=== PATIENT | male | born 1955 | race Caucasian/White ===

== ENCOUNTER 2016-07-23 09:04 | Day surgery (SDC) | payer OTHER ==
[~2016-07-23] VITALS: Ht 185.4 cm; Wt 96.2 kg
[~2016-07-23 09:04] MED LIST: ACET325T51 PO; DILT120C86 PO; LEVO100C2 PO; LIP40 PO; LISI-567 PO; RIVA20TA PO; Sodium Chloride LOK Flush 10 mL Syringe IV PRN; fentaNYL-PF 50 mCg/mL 2 mL Inj IVPUSH PRN
[2016-07-23] MEDS ORDERED: fentaNYL-PF 50 mCg/mL 2 mL Inj IVPUSH ONE (09:05)
[2016-07-23 09:54] VITALS: BP 175/86; PULSE 91; RESP 16; O2SAT 100
[2016-07-23] MEDS ORDERED: 0.9% Sodium Chloride 1,000 ML IV ONE (10:06)
[2016-07-23 11:03] VITALS: BP 120/69; PULSE 67; RESP 16; O2SAT 97
[2016-07-23 11:13] VITALS: BP 103/72; PULSE 73; RESP 16; O2SAT 99
[2016-07-23 11:17] VITALS: BP 108/69; PULSE 77; RESP 16; O2SAT 99
--- NOTE | 2016-07-23 11:29 | ENDO ---
[address] [address] ENDOSCOPY PROCEDURE PATIENT: NYASIA PFEIFFER : 1955 MR#: [id number] ADMIT: 07/23/2016 JOB ID: [id number] DATE OF SERVICE: 07/23/2016 TYPE OF OPERATION: Colonoscopy. PREOPERATIVE DIAGNOSIS(ES): Colorectal cancer screening. POSTOPERATIVE DIAGNOSIS(ES): 1. Mild sigmoid diverticulosis. 2. Small internal hemorrhoids. ANESTHESIA: Fentanyl 125 mcg, Versed 5 mg IV administered. COMPLICATIONS: None. BLOOD LOSS: Minimal. DESCRIPTION OF PROCEDURE: After risks and benefits were explained to the patient, informed consent was obtained. After anesthesia administered, a colonoscope was then inserted from the rectum to the cecum. Mucosa carefully examined. Prep of the patient was excellent. After the procedure was done, the scope withdrawn and procedure terminated. FINDINGS: Upon inspection of the anus, no masses, hemorrhoids, ulcers, or fissures that were seen. Throughout the entire examination, there is mild sigmoid diverticulosis. No polyps or mass was seen. Retroflexion showed small internal hemorrhoids. IMPRESSION: 1. Small internal hemorrhoids. 2. Mild sigmoid diverticulosis. RECOMMENDATION: 1. High-fiber diet. 2. Repeat colonoscopy 10 years for colorectal cancer screening.
== END 2016-07-23 23:59 | disposition home or self-care (01) ==
LOC: END 09:04
PROVIDERS: ATTEND Internal Medicine Gastroenterology
DX: Z12.11 Encounter for screening for malignant neoplasm of colon (principal); K57.30 Diverticulosis of large intestine without perforation or abscess without bleeding; K64.8 Other hemorrhoids; I10 Essential (primary) hypertension; I25.10 Atherosclerotic heart disease of native coronary artery without angina pectoris; I48.91 Unspecified atrial fibrillation; E78.5 Hyperlipidemia, unspecified; E03.9 Hypothyroidism, unspecified; F17.210 Nicotine dependence, cigarettes, uncomplicated; Z86.73 Personal history of transient ischemic attack (TIA), and cerebral infarction without residual deficits; Z79.01 Long term (current) use of anticoagulants
CPT/HCPCS: 99152; G0121; J2250; J3010; J7030